=== PATIENT | male | born 1995 | race Caucasian/White ===

== ENCOUNTER 2018-08-26 15:35 | Emergency (ER) | payer BC ==
[~2018-08-26] VITALS: Ht 188 cm; Wt 136.1 kg
[~2018-08-26 15:35] MED LIST: ABILIFY 5 MG TAB5 MG PO; AUGMENTIN 875875 M1 PO; CYCLOBENZAPRINE5 MG PO; HYDROCODON-ACE1 EAC7 PO; HYDROCODONE-APA1 TA1 PO; IBUPROFEN 600600 M1 PO; IBUPROFEN 800800 MG PO; MAGIC MOUTHWASH PO; NORCO 5-325 TA1 EACH PO; TRAMADOL 50 MG50 MG PO; VYVANSE70 MG PO; ZOFRAN ODT4 MG PO
[2018-08-26 16:09] LABS: ABSOLUTE BASOPHILS 0.1 thou/uL (0.0-0.2); ABSOLUTE EOSINOPHILS 0.2 thou/uL (0.0-0.7); ABSOLUTE LYMPHOCYTES 2.1 thou/uL (0.8-5.3); ABSOLUTE MONOCYTES 0.4 thou/uL (0.0-1.2); ABSOLUTE NEUTROPHILS 4.7 thou/uL (1.6-8.1); BASOPHILS 1.2 %; EOSINOPHILS 2.9 %; HEMATOCRIT 43.2 % (42.0-52.0); HEMOGLOBIN 14.8 gm/dL (14.0-18.0); LYMPHOCYTES 28.2 %; MCHC 34.1 g/dL (28.0-37.0); MONOCYTES 5.8 %; MPV 8.2 fl. (7.2-11.1); NUCLEATED RBCS 0 /100WBC; PLATELET COUNT* 216 thou/uL (150-400); POLYS 61.9 %; RBC 5.27 mil/uL (4.50-6.00); RDW-CV 13.3 % (10.5-14.5); WBC 7.6 thou/uL (4.0-11.0)
[2018-08-26 16:26] LABS: ANION GAP 10 mmol/L (7-16); BUN 17 mg/dL (7-18); CHLORIDE 104 mmol/L (98-107); CO2 26 mmol/L (21-32); CREATININE 1.2 mg/dL (0.6-1.3); GLUCOSE 99 mg/dL (70-99); SODIUM 140 mmol/L (136-145)
[2018-08-26 16:30] LABS: ALBUMIN 3.9 g/dL (3.4-5.0); ALKALINE PHOSPHATASE 79 U/L (46-116); SGOT 30 U/L (15-37); SGPT 70 U/L (30-65); TOTAL BILIRUBIN 0.9 mg/dL (<0.1-1.0); TOTAL PROTEIN 7.5 g/dL (6.4-8.2); TROPONIN-I LEVEL <0.06 ng/mL (<0.06)
[2018-08-26 19:00] VITALS: BP 113/74
--- NOTE | 2018-08-27 15:31 | EKG ---
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: : 1995 Requested By: Sussy Peters Order Number: [id number] MD: Kailash Davenport Measurements Intervals Dresser Rate: 90 P: 39 FL: 162 QRS: 51 QRSD: 101 T: 15 QT: 326 QTc: 399 Interpretive Statements Sinus rhythm Inferior Q waves noted Compared to ECG 08/17/2006 09:48:28 No significant changes noted Electronically Signed On 08-27-2018 15:31:21 CDT by Kailash Davenport [email or web address] <ELECTRONICALLY SIGNED> By: Kailash Davenport MD, [facility] 08/27/18 1531 [id number] 154 Kailash Davenport MD, FACC /EPI
== END 2018-08-26 19:01 | disposition home or self-care (01) ==
LOC: M.ERS 15:35
PROVIDERS: Nurse Practitioner Family
DX: R07.89 Other chest pain (principal); F90.9 Attention-deficit hyperactivity disorder, unspecified type; F17.210 Nicotine dependence, cigarettes, uncomplicated; Z88.1 Allergy status to other antibiotic agents